=== PATIENT | female | born 1985 | race Caucasian/White ===

== ENCOUNTER → 2016-11-04 | Emergency (ER) | payer SELFPAY | END | disposition left against medical advice (07) | LOC: ER 15:57 | DX: J02.9 Acute pharyngitis, unspecified (principal); Z53.21 Procedure and treatment not carried out due to patient leaving prior to being seen by health care provider ==

== ENCOUNTER 2023-11-10 11:02 | Emergency (ER) | payer SELFPAY ==
[~2023-11-10] VITALS: Ht 162.6 cm; Wt 88.4 kg
[2023-11-10 11:18] VITALS: BP 120/51; PULSE 86; RESP 16; O2SAT 97
[2023-11-11] MEDS ORDERED: IBUP1TAB5 PO (11:13)
== END 2023-11-10 19:55 | disposition left against medical advice (07) ==
LOC: ER 11:02
DX: M79.672 Pain in left foot (principal); M25.572 Pain in left ankle and joints of left foot; Z53.21 Procedure and treatment not carried out due to patient leaving prior to being seen by health care provider; W10.9XXA Fall (on) (from) unspecified stairs and steps, initial encounter; Y93.89 Activity, other specified; Y92.89 Other specified places as the place of occurrence of the external cause; Y99.8 Other external cause status
CPT/HCPCS: 73630

== ENCOUNTER 2023-11-11 09:20 | Emergency (ER) | payer MEDICAID, OTHER ==
[~2023-11-11] VITALS: Ht 162.6 cm; Wt 86.8 kg
[2023-11-11 10:58] VITALS: BP 133/55; TEMP 98.8
[2023-11-11 11:02] VITALS: PULSE 66; RESP 18; O2SAT 97
[2023-11-11] MEDS ORDERED: IBUP1TAB5 PO (11:13)
== END 2023-11-11 12:22 | disposition home or self-care (01) ==
LOC: ER 09:20
DX: S93.602A Unspecified sprain of left foot, initial encounter (principal); W10.9XXA Fall (on) (from) unspecified stairs and steps, initial encounter; Y93.89 Activity, other specified; Y92.89 Other specified places as the place of occurrence of the external cause; Y99.8 Other external cause status